=== PATIENT | female | born 1990 ===

== ENCOUNTER → 2019-11-13 | Outpatient (CLI) | payer OTHER ==
[2019-11-13 15:07] VITALS: BP 104/66; PULSE 70; RESP 16; TEMP 98.1
--- NOTE | 2019-11-13 16:11 | P.HPBAR ---
Bariatric H&P - History & Physicial H&P Date: 11/13/19 History & Physicial: Visit/CC: INITIAL F/U Care Patient initial contact: Initial weight: Initial weight in pounds: Height: Initial BMI: Last weight: Current weight: Current weight in pounds: Current BMI: [place] body weight (based on NIH guidelines): Excess body weight loss: The patient is a 29 year-old F who presents for Bariatric Assessment. HPI: Had surgery in [facility] [place], [place]. Highest 317 pounds. 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 She had no trouble with with weight loss surgery done laparoscopically. October 12 2015. Her follow up was 1 year and lost BMI with belt lipectomy, 155 pounds to 160 pounds. She had complications from her belt lipectomy. She has her wounds open up. Her gallbladder was removed 1 year after her lipectomy, November 09 2016. She had her gallbladder removed in 2018. She has stomach pains still persistent following her weight loss surgery. She moved 2017 from [facility]. She and her is out of the and now she is back in [place]. She reports occassional pain at the bilateral lower abdomen going to her lower back. Her bowel movements are varied. She is 4 to 6 months. She has GERD. She has occassional dysphagia. PLAN: 1. Needs labs 2. She is first time 3. She has gained weight 4. She is on antidepressant. 5. She needs to track her diet Past Medical History Past Medical History: No Reported History History of Any Multi-Drug Resistant Organisms: None Reported Past Surgical History: Adenoidectomy, Bariatric Surgery, Cholecystectomy, Tonsillectomy Additional Past Surgical History / Comment(s): duodinal switch 2016 in [facility] panniculectomy Past Anesthesia/Blood Transfusion Reactions: No Reported Reaction Past Psychological History: No Psychological Hx Reported Smoking Status: Never smoker Past Alcohol Use History: None Reported Past Drug Use History: None Reported Surgical - Exam Vital Signs Temp Pulse Resp BP 98.1 F 70 16 104/66 11/13/19 15:03 11/13/19 15:03 11/13/19 15:03 11/13/19 15:03 Bariatric Checklist Checklist: Plan: Checklist: EGD: 1. Hiatal hernia: 2. H. Pylori: HgbA1c: Vitamin D: Smoking: Never smoker Primary care physician referral: Psychiatry clearance: Cardiology clearance: Sleep study: Diet journal: VTE risk score: VTE risk level: Rehab needs at discharge:
== END | disposition home or self-care (01) ==
LOC: BARWHC3 14:29
PROVIDERS: ATTEND Surgery Plastic and Reconstructive Surgery
DX: Z48.817 Encounter for surgical aftercare following surgery on the skin and subcutaneous tissue (principal); L76.82 Other postprocedural complications of skin and subcutaneous tissue; R10.9 Unspecified abdominal pain; K21.9 Gastro-esophageal reflux disease without esophagitis; Z90.49 Acquired absence of other specified parts of digestive tract; Z98.84 Bariatric surgery status; Z98.890 Other specified postprocedural states
CPT/HCPCS: 99201